=== PATIENT | female | born 1965 | race Caucasian/White ===

== ENCOUNTER 2022-10-21 22:08 | Emergency (ER) | payer OTHER ==
[~2022-10-21] VITALS: Ht 157.5 cm; Wt 90.7 kg
[2022-10-21 22:08] VITALS: BP 136/80
--- NOTE | 2022-10-21 22:10 | NUR ---
TO LOBBY A/W BED, BIBA WITH C/O BACK PAIN, NO TRAUMA NOR INJURY
--- NOTE | 2022-10-21 23:14 | NUR ---
Patient taken to X-ray via WC.
--- NOTE | 2022-10-21 23:36 | NUR ---
Patient taken to bed 2.
--- NOTE | 2022-10-22 | NUR ---
ASSUMED CARE C/O MID TO LOWER BACK PAIN, NO TRAUMA
--- NOTE | 2022-10-22 00:15 | NUR ---
URINE WALKED TO LAB
[2022-10-22] MEDS ORDERED: MORPHINE SULFATE 4 MG/ML SYR IM ONE (00:20)
[2022-10-22] MEDS ORDERED: IBUPROFEN 600 MG TAB PO ONE (00:20)
[2022-10-22] MEDS ORDERED: IBUP-2213 PO (00:32)
[2022-10-22] MEDS ORDERED: LIDO1ADH47 TP (00:32)
[2022-10-22] MEDS ORDERED: ACET-9527 PO (00:32)
--- NOTE | 2022-10-22 01:11 | NUR ---
Patient discharged with v/s stable. Written and verbal after care instructions given and explained. Patient alert, oriented and verbalized understanding of instructions. Wheel Chair Assisted with to carWITH DAUGHTER. All questions addressed prior to discharge. ID band removed. Patient advised to follow up with PMD. Rx of MOTRIN , NORCO, LIDODERM given. Patient educated on indication of medication including possible reaction and side effects. Opportunity to ask questions provided and answered.
== END 2022-10-22 01:11 | disposition home or self-care (01) ==
LOC: MED 22:08
DX: S39.012A Strain of muscle, fascia and tendon of lower back, initial encounter (principal); Z79.899 Other long term (current) drug therapy; X58.XXXA Exposure to other specified factors, initial encounter; Y93.89 Activity, other specified; Y92.89 Other specified places as the place of occurrence of the external cause; Y99.8 Other external cause status
CPT/HCPCS: 72080; 96372; 99283; J2270